=== PATIENT | female | born 1985 | race Caucasian/White ===

== ENCOUNTER 2019-07-13 17:23 | Emergency (ER) | payer SELFPAY ==
[2019-07-13] MEDS ORDERED: Benzocaine 20% Topical Spray UD MUCMEM ONE (17:47)
[2019-07-13] MEDS ORDERED: Lidocaine 2% Viscous Solution 15 ML Cup PO ONE (17:47)
--- NOTE | 2019-07-13 17:47 | EDM.PDOC ---
ED HPI GENERAL MEDICAL PROBLEM - General Chief Complaint: ENT Problem Stated Complaint: SWOLLEN UNDER TONGUE Time Seen by Provider: 07/13/19 17:45 Source of Information: Reports: Patient - History of Present Illness INITIAL COMMENTS - FREE TEXT/NARRATIVE: HISTORY AND PHYSICAL: History of present illness: []Patient presents with dental pain swollen gums tenderness is 5 out of 10 nonradiating no muffled voice drooling or trismus Review of systems: As per history of present illness and below otherwise all systems reviewed and negative. Past medical history: As per history of present illness and as reviewed below otherwise noncontributory. Surgical history: As per history of present illness and as reviewed below otherwise noncontributory. Social history: No reported history of drug or alcohol abuse. Family history: As per history of present illness and as reviewed below otherwise noncontributory. Physical exam: HEENT: Atraumatic, normocephalic, pupils reactive, negative for conjunctival pallor or scleral icterus, mucous membranes moist, throat clear, neck supple, nontender, trachea midline. Lungs: Clear to auscultation, breath sounds equal bilaterally, chest nontender. Heart: S1S2, regular, negative for clicks, rubs, or JVD. Abdomen: Soft, nondistended, nontender. Negative for masses or hepatosplenomegaly. Negative for costovertebral tenderness. Pelvis: Stable nontender. Genitourinary: Deferred. Rectal: Deferred. Extremities: Atraumatic, negative for cords or calf pain. Neurovascular unremarkable. Neuro: Awake, alert, oriented. Cranial nerves II through XII unremarkable. Cerebellum unremarkable. Motor and sensory unremarkable throughout. Exam nonfocal. Diagnostics: clinical Therapeutics: cleocin Dental balls ] Impression: [Dental abscess] Definitive disposition and diagnosis as appropriate pending reevaluation and review of above. under tongue Pain Score (Numeric/FACES): 10 - Related Data Allergies Allergy/AdvReac Type Severity Reaction Status Date / Time Penicillins Allergy Hives Verified 07/13/19 17:34 Home Meds: Home Meds . 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: - Infectious Disease History Infectious Disease History: Reports: Chicken Pox Social & Family History - Family History Family Medical History: Noncontributory - Tobacco Use Smoking Status *Q: Current Every Day Smoker Years of Tobacco use: 10 Packs/Tins Daily: 0.5 - Caffeine Use Caffeine Use: Reports: Coffee, Soda - Recreational Drug Use Recreational Drug Use: No ED ROS GENERAL - Review of Systems Review Of Systems: See Below ED EXAM, GENERAL - Physical Exam Exam: See Below Course - Vital Signs Last Recorded V/S: Last Vital Signs Temp 97.3 F 07/13/19 17:31 Pulse 97 07/13/19 17:31 Resp 16 07/13/19 17:31 BP 125/84 07/13/19 17:31 Pulse Ox 98 07/13/19 17:31 Departure - Departure Time of Disposition: 17:46 Disposition: Home, Self-Care 01 Condition: Good Clinical Impression: Dental abscess - Discharge Information Referrals: PCP,Unknown [Primary Care Provider] - Additional Instructions: medication as prescribed Ibuprofen 800 mg 3 times daily 7-10 days Follow-up with dentist as soon as possible Return if symptoms persist or worsen despite treatment The following information is given to patients seen in the emergency department who are being discharged to home. This information is to outline your options for follow-up care. We provide all patients seen in our emergency department with a follow-up referral. The need for follow-up, as well as the timing and circumstances, are variable depending upon the specifics of your emergency department visit. If you don't have a primary care physician on staff, we will provide you with a referral. We always advise you to contact your personal physician following an emergency department visit to inform them of the circumstance of the visit and for follow-up with them and/or the need for any referrals to a consulting specialist. The emergency department will also refer you to a specialist when appropriate. This referral assures that you have the opportunity for follow-up care with a specialist. All of these measure are taken in an effort to provide you with optimal care, which includes your follow-up. Under all circumstances we always encourage you to contact your private physician who remains a resource for coordinating your care. When calling for follow-up care, please make the office aware that this follow-up is from your recent emergency room visit. If for any reason you are refused follow-up, please contact the [facility] emergency department at and asked to speak to the emergency department charge nurse.
== END 2019-07-13 18:00 | disposition home or self-care (01) ==
LOC: MW.ED 17:23
DX: K04.7 Periapical abscess without sinus (principal); F17.210 Nicotine dependence, cigarettes, uncomplicated; Z88.0 Allergy status to penicillin
CPT/HCPCS: 99283; A9270; 99282

== ENCOUNTER 2023-02-27 14:23 | Emergency (ER) | payer SELFPAY | END 2023-02-27 15:31 | disposition home or self-care (01) | LOC: MW.ED 14:23 | DX: K04.7 Periapical abscess without sinus (principal); K02.9 Dental caries, unspecified; Z88.0 Allergy status to penicillin | CPT/HCPCS: 99282; 99283 ==

== ENCOUNTER 2023-07-24 16:51 | Emergency (ER) | payer SELFPAY | END 2023-07-24 17:36 | disposition left against medical advice (07) | LOC: MW.ED 16:51 | DX: Z53.21 Procedure and treatment not carried out due to patient leaving prior to being seen by health care provider (principal) ==

== ENCOUNTER 2024-04-23 13:58 | Emergency (ER) | payer SELFPAY | END 2024-04-23 15:57 | disposition left against medical advice (07) | LOC: MW.ED 13:58 | DX: Z53.21 Procedure and treatment not carried out due to patient leaving prior to being seen by health care provider (principal) ==

== ENCOUNTER 2024-04-23 16:36 | Emergency (ER) | payer MEDICAID ==
[2024-04-23] MEDS: Benzocaine 20% Topical Spray UD MUCMEM ONE (17:46)
[2024-04-23] MEDS: Lidocaine 2% Viscous Solution 15 ML UD PO ONE (17:46)
[2024-04-23] MEDS: Clindamycin HCl 150 MG Cap PO STA (17:46)
== END 2024-04-23 17:48 | disposition home or self-care (01) ==
LOC: MW.ED 16:36
DX: K04.7 Periapical abscess without sinus (principal); Z75.8 Other problems related to medical facilities and other health care
CPT/HCPCS: 99282; A9270; 99283

== ENCOUNTER 2024-11-22 22:01 | Emergency (ER) | payer MEDICAID ==
[2024-11-22] MEDS: Tetracaine HCl/PF 0.5% 4 ML Bottle EYERT STA (23:21)
== END 2024-11-23 00:20 | disposition left against medical advice (07) ==
LOC: MW.ED 22:01
DX: Z53.21 Procedure and treatment not carried out due to patient leaving prior to being seen by health care provider (principal)
CPT/HCPCS: J3490